=== PATIENT | female | born 1940 | race Caucasian/White ===

== ENCOUNTER 2022-02-05 13:40 | Observation (INO) | payer OTHER ==
[~2022-02-05] VITALS: Ht 170.2 cm; Wt 79.4 kg
[2022-02-05 15:09] LABS: HEMOGLOBIN 12.7 gm/dl (12.3-15.3); RED BLOOD COUNT 3.88 M/UL (4.00-5.10); WHITE BLOOD COUNT 6.6 K/UL (4.5-11.0)
[2022-02-05 16:02] LABS: BUN/CREATININE RATIO 20 (0-10)
[2022-02-05] MEDS ORDERED: METHOCARBAMOL500 MG PO (22:42)
[2022-02-05] MEDS ORDERED: NAMENDA10 MG PO (22:43)
[2022-02-05] MEDS ORDERED: ONE DAILY WOME1 EAC1 PO (22:44)
[2022-02-05] MEDS ORDERED: CALCIUM CARBON600 MG PO (22:45)
[2022-02-05] MEDS ORDERED: VITAMIN D325 MC6 PO (22:45)
[2022-02-05] MEDS ORDERED: FOLIC ACID0.8 MG PO (22:49)
[2022-02-05] MEDS ORDERED: IRON325 M1 PO (22:49)
[2022-02-05] MEDS ORDERED: TYLENOL EXTRA500 MG PO (22:50)
[2022-02-05] MEDS ORDERED: VITAMIN B-121000 MCG PO (22:50)
[2022-02-05] MEDS ORDERED: RESVERATROL100 MG PO (22:51)
[2022-02-06 05:43] LABS: HEMOGLOBIN 12.7 gm/dl (12.3-15.3); RED BLOOD COUNT 3.87 M/UL (4.00-5.10); WHITE BLOOD COUNT 5.4 K/UL (4.5-11.0)
[2022-02-06 05:57] LABS: BUN/CREATININE RATIO 19 (0-10)
[2022-02-07] MEDS ORDERED: MACROBID 100 M100 MG PO (09:40)
== END 2022-02-07 11:40 | disposition home or self-care (01) ==
LOC: ER1 13:40 → CDU 17:52 → MED SURG 4 22:51
PROVIDERS: Emergency Medicine; Physician Assistant Medical; ADMIT Internal Medicine
DX: N39.0 Urinary tract infection, site not specified (principal); B96.20 Unspecified Escherichia coli [E. coli] as the cause of diseases classified elsewhere; R53.1 Weakness; E87.1 Hypo-osmolality and hyponatremia; Z20.822 Contact with and (suspected) exposure to COVID-19; Z87.891 Personal history of nicotine dependence
CPT/HCPCS: ECHO; 70450; 71045; 80048; 80053; 81001; 82550; 82553; 83735; 84484; 85025; 85027; 87040; 87077; 87086; 87186; 93005; 93306; 96374; 96375; 96376; 99285; G0378; J0696; U0002